=== PATIENT | female | born 1990 | race American Indian/Alaskan Native ===

== ENCOUNTER 2020-10-08 19:09 | Inpatient (IN) | payer MEDICAID ==
[2020-10-08] MEDS ORDERED: Sodium Chloride 0.9% 10 ML Syringe FLUSH PRN (19:33)
[2020-10-08] MEDS ORDERED: Metoclopramide 10 MG/2 ML SDV IVPUSH ONE (19:33)
[2020-10-08] MEDS ORDERED: ceFAZolin 2 GM in Premix Bag 1 BAG IV ONE (19:33)
[2020-10-08] MEDS ORDERED: Citric Acid/Sodium Citrate Solution 30 ML Cup PO ONE (19:33)
[2020-10-08] MEDS ORDERED: Oxytocin 10 Units/1 ML SDV ONE (19:42)
[2020-10-08] MEDS ORDERED: Lactated Ringers 2,000 ML ONE (19:42)
[2020-10-08] MEDS ORDERED: Lidocaine 1% 4 ML ONE (19:42)
[2020-10-08] MEDS ORDERED: ceFAZolin 1 GM Vial ONE (19:42)
[2020-10-08] MEDS ORDERED: Ketorolac 30 MG/ML SDV ONE (19:42)
[2020-10-08] MEDS ORDERED: Propofol 200 MG/20 ML SDV ONE (19:42)
[2020-10-08] MEDS ORDERED: Succinylcholine/Sod PF 100 MG/5 ML SYRINGE IV ONE (19:42)
[2020-10-08] MEDS ORDERED: Ondansetron 4 MG/2 ML SDV ONE (19:42)
[2020-10-08] MEDS ORDERED: Lactated Ringers 1,000 ML IV SCH (19:45)
[2020-10-08] MEDS ORDERED: fentaNYL 250 MCG/5 ML SDV ONE (19:47)
[2020-10-08] MEDS ORDERED: Bupivacaine 0.5% 30 ML SDV ONE (19:49)
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
[2020-10-08] MEDS ORDERED: Dexamethasone 4 MG/ML SDV ONE ×2 (20:31→20:35)
[2020-10-08] MEDS ORDERED: HYDROmorphone 0.5 MG/0.5 ML Syringe ONE (20:40)
[2020-10-08] MEDS ORDERED: fentaNYL 100 MCG/2 ML SDV ONE (20:55)
[2020-10-08] MEDS ORDERED: fentaNYL 100 MCG/2 ML SDV IVPUSH PRN (21:10)
[2020-10-08] MEDS ORDERED: HYDROmorphone 0.5 MG/0.5 ML Syringe IVPUSH PRN (21:10)
[2020-10-08] MEDS ORDERED: Ondansetron 4 MG/2 ML SDV IVPUSH PRN (21:10)
--- NOTE | 2020-10-08 21:10 | PCM.POSTAN ---
POST ANESTHESIA ASSESSMENT - MENTAL STATUS Mental Status: Alert, Oriented - VITAL SIGNS Vital Signs: Last Vital Signs Temp 98.9 F 10/08/20 19:38 Pulse 65 10/08/20 19:38 Resp 18 10/08/20 19:38 BP 131/74 10/08/20 19:38 Pulse Ox 99 10/08/20 19:38 2104 115/71 80 17 97.7 98% - RESPIRATORY Respiratory Status: Respiratory Rate WNL, Airway Patent, O2 Saturation Stable, Supplemental Oxygen - CARDIOVASCULAR CV Status: Pulse Rate WNL, Blood Pressure Stable - GASTROINTESTINAL GI Status: No Symptoms - PAIN Pain Score: 5 - POST OP HYDRATION Hydration Status: Adequate & Stable
--- NOTE | 2020-10-08 21:14 | PCM.OPNOTE ---
- General Post-Op/Procedure Note Date of Surgery/Procedure: 10/08/20 Operative Procedure(s): repeat Findings: viable male, 7/9 apgars, 3380g at 2034. Scar of omentum to bladder. Pre Op Diagnosis: labor, prior , desires repeaet Post-Op Diagnosis: Same Anesthesia Technique: General ET Tube Primary Surgeon: Brittney Crow Anesthesia Provider: Geovanni Carbone Sales And Service Agent: Lucy Briggs Fluid Replacement, Intraop: 1,800 Output, Urine Amount: 350 EBL in mLs: 1,000 Complications: None Condition: Good Free Text/Narrative:: T The patient was prepped and draped in the usual sterile fashion in the dorsal supine position with a leftward tilt. GETA was initiated. A Pfannenstiel skin incision was made with the scalpel and carried through to the underlying layer of fascia. The fascia was incised in the midline and extended laterally using Lassiter scissors. Karen clamps were used to elevate the superior aspect of the fascial incision, which was elevated, and the underlying rectus muscles were dissected off bluntly and using Lassiter scissors. Attention was then turned to the inferior aspect of the fascial incision, which in similar fashion was grasped with Karen clamps, elevated, and the underlying rectus muscles were dissected off bluntly and using the lassiter. The rectus muscles were dissected in the midline. The peritoneum was entered bluntly; this incision was extended superiorly and inferiorly with good visualization of the bladder. The bladder blade was inserted. The vesicouterine peritoneum was identified and entered sharply using Metzenbaum scissors. This incision was extended laterally and the bladder flap was created digitally. The bladder blade was reinserted. The lower uterine segment was incised in a transverse fashion using the scalpel and with digital traction. Clear fluid was noted. The infant was subsequently delivered by flexing the head to the incision. Body and shoulders followed without difficulty. The cord was clamped and cut. The infant was subsequently handed to the awaiting medical assistant secretary whose presence had been requested.. The placenta was delivered spontaneously intact with a three-vessel cord noted. The uterus was exteriorized and cleared of all clots and debris. The uterine incision was repaired in 1 layer using 0 monocryl. Hemostasis was visualized. Hemostasis was visualized bilaterally. The uterus was returned to the abdomen. Scar band of omentum to bladder taken down through omentum with bovie cautery. The uterine incision was reexamined and it was noted to be hemostatic. The pelvis was copiously irrigated. The fascia was closed with 0 vicryl suture, and the skin was closed with 3-0 monocryl. Sponge, lap, and instrument counts were correct x2. The patient was stable at the completion of the procedure and was subsequently transferred to the recovery room in stable condition.
[2020-10-08] MEDS ORDERED: ePHEDrine 50 MG/ML SDV IVPUSH PRN (23:40)
[2020-10-08] MEDS ORDERED: diphenhydrAMINE 50 MG/ML SDV IVPUSH PRN (23:40)
[2020-10-08] MEDS ORDERED: Acetaminophen 325 MG Tab PO PRN (23:40)
[2020-10-08] MEDS ORDERED: Dextrose 5%-Lactated Ringers 1,000 ML IV SCH (23:40)
[2020-10-08] MEDS ORDERED: Morphine 2 MG/ML SYRINGE IVPUSH PRN (23:40)
[2020-10-08] MEDS ORDERED: Naloxone 0.4 MG/ML SDV IVPUSH PRN (23:40)
[2020-10-08] MEDS: Acetaminophen/oxyCODONE 325-5 MG Tab PO PRN (23:54)
[2020-10-09] MEDS: Ibuprofen 600 MG Tab PO PRN ×3 (03:41→21:00)
[2020-10-09] MEDS: Acetaminophen/oxyCODONE 325-5 MG Tab PO PRN ×4 (05:00→22:34)
--- NOTE | 2020-10-09 10:11 | PCM.SN.2 ---
- Free Text/Narrative Note: note: Patient is doing well in the period. Minimal lochia, voiding well, ambulated without problems. Nursing without concerns. Patient is afebrile, vital signs are stable Abdomen is flat, soft, uterus is below the umbilicus and is firm and nontender. Incision is dry, intact. Dressing is removed. Steri-Strips are in place. Legs are nontender. Assessment: Postoperative/ day #1 recovery going well. Plan: Routine care. Patient be discharged home within the next 48 hours.
--- NOTE | 2020-10-09 15:15 | PCM48HPAN ---
Post Anesthesia Note - EVALUATION WITHIN 48HRS OF ANESTHETIC Vital Signs in Normal Range: Yes Patient Participated in Evaluation: Yes Respiratory Function Stable: Yes Airway Patent: Yes Cardiovascular Function Stable: Yes Hydration Status Stable: Yes Pain Control Satisfactory: Yes Nausea and Vomiting Control Satisfactory: Yes Mental Status Recovered: Yes Vital Signs: Last Vital Signs Temp 97.5 F 10/09/20 12:04 Pulse 75 10/09/20 12:04 Resp 17 10/09/20 12:04 BP 110/86 10/09/20 12:04 Pulse Ox 100 10/09/20 12:04 - COMMENTS/OBSERVATIONS Free Text/Narrative:: Visited with patient regarding experience. Patient stated that it went well. Patient did not verbalize any questions or concerns at this time. Randa Boykin DEVOPS CONSULTANT
[2020-10-10] MEDS: Acetaminophen/Codeine 300-30 MG Tab PO PRN ×3 (08:56→20:33)
[2020-10-10] MEDS: hydrOXYzine HCl 25 MG Tab PO SCH ×2 (08:56→20:32)
[2020-10-10] MEDS: Docusate Sodium 100 MG Cap PO SCH ×2 (08:56→20:33)
--- NOTE | 2020-10-10 09:14 | PCM.SN.2 ---
- Free Text/Narrative Note: Post Operative Progress Note POD #2 Subjective: Doing well overall. Ambulating without difficulty. Lochia minimal. Voiding without difficulty. Passing flatus but has not had a bowel movement. Denies significant pressure like she has to have a bowel movement. Tolerating regular diet without nausea or vomiting. Pain overall controlled with oral medications. Bottlefeeding with minimal difficulty. Objective: Vitals: Vital Signs - 24 hr 10/09/20 10/09/20 10/09/20 12:04 16:20 20:57 Temperature 36.4 C 36.8 C 36.9 C Pulse, 75 85 76 Peripheral Respiratory 17 18 16 Rate Blood Pressure 110/86 114/60 123/62 O2 Sat by Pulse 100 99 98 Oximetry 10/10/20 04:26 Temperature 37.0 C Pulse, 70 Peripheral Respiratory 16 Rate Blood Pressure 111/62 O2 Sat by Pulse 98 Oximetry Physical Exam General: Alert and oriented, no acute distress Lungs: Clear to auscultation bilaterally Heart: Regular rate and rhythm Abdomen: Soft, minimal appropriate tenderness, non-distended, fundus midline, nontender and at the umbilicus Incision: Clean, dry and intact, no erythema, bleeding or drainage with Steri- Strips in place Extremities: Trace edema in bilateral lower extremities to mid shins, no calf tenderness bilaterally Laboratory Results - last 24 hr 10/08/20 Range/Units 20:00 RPR Non-reactive (NONREACTIVE) ASSESSMENT: 29-year-old female -0-0-2 s/p repeat section POD #2 for history of section, complicated by current incarceration, hepatitis C, tobacco use and history of meth use PLAN: Doing well Bottlefeeding with minimal difficulty. Assist as needed Incision healing well. Continue to keep clean and dry. Lochia minimal. Continue to monitor for appropriate lochia. Continue routine post-operative care Restart hydroxyzine 25 mg twice daily for anxiety Transition to Tylenol #3 from Percocet due to only able to receive Tylenol #3 in detention. We will make sure that her pain is able to be very well controlled with Tylenol 3 and if not would recommend for her to be given Percocet for pain control Anticipate discharge home this afternoon if pain continues to be well controlled Kenton Mullen MD 9:13 AM 10/10/2020
[2020-10-11] MEDS: Acetaminophen/Codeine 300-30 MG Tab PO PRN ×3 (02:07→16:54)
[2020-10-11] MEDS: Ibuprofen 600 MG Tab PO PRN (08:02)
[2020-10-11] MEDS: hydrOXYzine HCl 25 MG Tab PO SCH (08:03)
[2020-10-11] MEDS: Docusate Sodium 100 MG Cap PO SCH (08:03)
[2020-10-11 08:36] VITALS: BP 111/65; PULSE 76
--- NOTE | 2020-10-11 09:59 | PCM.DCSUM1 ---
Discharge Summary - Hospital Course Free Text/Narrative:: Tania is a 29-year-old multigravida female admitted on 10/08/2020 for elective repeat section. She was in labor at the time of admission. Please see admission history and physical. Please see operative report for details. She delivered a viable male infant Apgars of 7 and 9 and a weight of 3380 g at 2034 hrs. on 10/18/2020. Postoperatively pain was controlled with ibuprofen and Tylenol No. 3. She is made good bowel, bladder and ambulatory activity. [facility] 10/11/2020. Diagnosis: Stroke: No - Discharge Data Discharge Date: 10/11/20 Discharge Disposition: Home, Self-Care 01 Condition: Good - Referral to Home Health Primary Care Physician: Brittney Crow MD - Patient Summary/Data Operative Procedure(s) Performed: repeat - Patient Instructions Diet: Regular Diet as Tolerated Activity: As Tolerated ([place]yl[place] or tampons until seen back. No lifting greater than 15 pounds or driving a car for the next 7 to 10 days.) Driving: Do Not Drive Showering/Bathing: May Shower Wound/Incision Care: Keep Operative Site/Wound Site Clean and Dry Notify Provider of: Fever, Increased Pain, Swelling and Redness, Drainage, Nausea and/or Vomiting - Discharge Plan Home Medications: Home Meds #103/Iron Fumarate/Fa [ ] 1 each PO DAILY 08/11/20 [History] Acetaminophen/Codeine [Tylenol with Codeine No.3 300MG/30MG] 2 tab PO Q4H PRN tablet 10/11/20 [Rx] Ibuprofen [Motrin] 600 mg PO Q6H PRN tablet 10/11/20 [Rx] Referrals: Brittney Crow MD [Primary Care Provider] - ([facility] - Discharge Summary/Plan Comment DC Time >30 min.: No Discharge Summary/Plan Comment: Discharge instructions: 1. Discharge home 2. Diet, activity and follow-up discussed with patient. 3. Precautions given concern increased pain, bleeding, temperature, signs/symptoms of DVT/PE. 4. Medications per home medication was printed, discussed with and given to the patient. 5. Return to clinic-Dr. Crow at [facility] in 2 weeks. Diagnosis: 1. History of previous with desire for repeat section at term. 2. Term -delivered Condition: Good - Patient Data Vitals - Most Recent: Last Vital Signs Temp 36.7 C 10/11/20 08:05 Pulse 76 10/11/20 08:05 Resp 14 10/11/20 08:05 BP 111/65 10/11/20 08:05 Pulse Ox 97 10/11/20 08:05 Weight - Most Recent: 112.945 kg I&O - Last 24 hours: Intake & Output 10/10/20 10/11/20 10/11/20 22:59 06:59 14:59 Intake Total 240 Balance 240 Med Orders - Current: Current Medications Acetaminophen (Acetaminophen 325 Mg Tab) 650 mg PO Q4H PRN PRN Reason: mild pain or fever Acetaminophen/Codeine Phosphate (Acetaminophen/Codeine 300-30 Mg Tab) 1 tab PO Q4H PRN PRN Reason: Pain (moderate 4-6) Last Admin: 10/11/20 02:07 Dose: 1 tab Documented by: Acetaminophen/Codeine Phosphate (Acetaminophen/Codeine 300-30 Mg Tab) 2 tab PO Q4H PRN PRN Reason: Pain (severe 7-10) Last Admin: 10/10/20 13:18 Dose: 2 tab Documented by: Diphenhydramine HCl (Diphenhydramine 50 Mg/Ml Sdv) 25 mg IVPUSH Q6H PRN PRN Reason: Itching or Nausea Docusate Sodium (Docusate Sodium 100 Mg Cap) 100 mg PO BID [facility] Last Admin: 10/11/20 08:03 Dose: 100 mg Documented by: Ephedrine Sulfate (Ephedrine 50 Mg/Ml Sdv) 5 mg IVPUSH SEECOMMENT PRN PRN Reason: Other Hydroxyzine HCl (Hydroxyzine Hcl 25 Mg Tab) 25 mg PO BID [facility] Last Admin: 10/11/20 08:03 Dose: 25 mg Documented by: Ibuprofen (Ibuprofen 600 Mg Tab) 600 mg PO Q6H PRN PRN Reason: mild pain or fever Last Admin: 10/11/20 08:02 Dose: 600 mg Documented by: Morphine Sulfate (Morphine 2 Mg/Ml Syringe) 2 mg IVPUSH Q1H PRN PRN Reason: Pain (severe 7-10) Naloxone HCl (Naloxone 0.4 Mg/Ml Sdv) 0.1 mg IVPUSH SEECOMMENT PRN PRN Reason: Respiratory Depression Discontinued Medications Bupivacaine HCl (Bupivacaine 0.5% 30 Ml Sdv) Confirm Administered Dose 30 ml .ROUTE .STK-MED ONE Stop: 10/08/20 19:50 Last Admin: 10/08/20 20:56 Dose: 20 ml Documented by: Cefazolin Sodium (Cefazolin 1 Gm Vial) Confirm Administered Dose 2 gm .ROUTE .STK-MED ONE Stop: 10/08/20 19:43 Citric Acid/Sodium Citrate (Citric Acid/Sodium Citrate Solution 30 Ml Cup) 30 ml PO ONETIME ONE Stop: 10/08/20 19:34 Last Admin: 10/08/20 19:56 Dose: 30 ml Documented by: Dexamethasone (Dexamethasone 4 Mg/Ml Sdv) Confirm Administered Dose 4 mg .ROUTE .STK-MED ONE Stop: 10/08/20 20:32 Dexamethasone (Dexamethasone 4 Mg/Ml Sdv) Confirm Administered Dose 4 mg .ROUTE .STK-MED ONE Stop: 10/08/20 20:36 Fentanyl (Fentanyl 250 Mcg/5 Ml Sdv) Confirm Administered Dose 250 mcg .ROUTE .STK-MED ONE Stop: 10/08/20 19:48 Fentanyl (Fentanyl 100 Mcg/2 Ml Sdv) Confirm Administered Dose 100 mcg .ROUTE .STK-MED ONE Stop: 10/08/20 20:56 Fentanyl (Fentanyl 100 Mcg/2 Ml Sdv) 50 mcg IVPUSH Q5M PRN PRN Reason: Pain Last Admin: 10/08/20 21:31 Dose: 50 mcg Documented by: Hydromorphone HCl (Hydromorphone 0.5 Mg/0.5 Ml Syringe) Confirm Administered Dose 0.5 mg .ROUTE .STK-MED ONE Stop: 10/08/20 20:41 Hydromorphone HCl (Hydromorphone 0.5 Mg/0.5 Ml Syringe) 0.5 mg IVPUSH Q10M PRN PRN Reason: Pain (severe 7-10) Last Admin: 10/08/20 21:19 Dose: 0.5 mg Documented by: Cefazolin Sodium/Dextrose 2 gm (/ Premix) 50 mls @ 100 mls/hr IV ONETIME ONE Stop: 10/08/20 20:02 Last Admin: 10/08/20 23:09 Dose: Not Given Documented by: Lactated Ringer's (Ringers, Lactated) 1,000 mls @ 125 mls/hr IV ASDIRECTED [facility] Last Admin: 10/08/20 19:56 Dose: 125 mls/hr Documented by: Lactated Ringer's (Ringers, Lactated) Confirm Administered Dose 2,000 mls @ as directed .ROUTE .STK-MED ONE Stop: 10/08/20 19:43 Lidocaine HCl (Xylocaine-Mpf 1%) Confirm Administered Dose 4 mls @ as directed .ROUTE .STK-MED ONE Stop: 10/08/20 19:43 Dextrose/Lactated Ringer's (Dextrose 5%-Lactated Ringers) 1,000 mls @ 125 mls/hr IV ASDIRECTED [facility] Stop: 10/09/20 07:39 Last Admin: 10/08/20 23:49 Dose: 125 mls/hr Documented by: Ketorolac Tromethamine (Ketorolac 30 Mg/Ml Sdv) Confirm Administered Dose 30 mg .ROUTE .STK-MED ONE Stop: 10/08/20 19:43 Metoclopramide HCl (Metoclopramide 10 Mg/2 Ml Sdv) 10 mg IVPUSH ONETIME ONE Stop: 10/08/20 19:34 Last Admin: 10/08/20 19:56 Dose: 10 mg Documented by: Ondansetron HCl (Ondansetron 4 Mg/2 Ml Sdv) Confirm Administered Dose 4 mg .ROUTE .STK-MED ONE Stop: 10/08/20 19:43 Ondansetron HCl (Ondansetron 4 Mg/2 Ml Sdv) 4 mg IVPUSH ONETIME PRN PRN Reason: Nausea/Vomiting Oxycodone/Acetaminophen (Acetaminophen/Oxycodone 325-5 Mg Tab) 1 tab PO Q4H PRN PRN Reason: Pain (moderate 4-6) Last Admin: 10/09/20 22:34 Dose: 1 tab Documented by: Oxycodone/Acetaminophen (Acetaminophen/Oxycodone 325-5 Mg Tab) 2 tab PO Q4H PRN PRN Reason: Pain (severe 7-10) Last Admin: 10/09/20 11:36 Dose: 2 tab Documented by: Oxytocin (Oxytocin 10 Units/1 Ml Sdv) Confirm Administered Dose 10 unit .ROUTE .STK-MED ONE Stop: 10/08/20 19:43 Propofol (Propofol 200 Mg/20 Ml Sdv) Confirm Administered Dose 200 mg .ROUTE .STK-MED ONE Stop: 10/08/20 19:43 Sodium Chloride (Sodium Chloride 0.9% 10 Ml Syringe) 10 ml FLUSH ASDIRECTED PRN PRN Reason: Keep Vein Open
[2020-10-11] MEDS ORDERED: diphenhydrAMINE 25 MG Cap PO ONE (17:00)
== END 2020-10-11 17:10 | disposition home or self-care (01) | DRG 788 ==
LOC: JD.OBCHECK 19:09 → JD.OB 19:10 → JD.OBCHECK 19:32 → JD.OB 19:33
PROVIDERS: ADMIT Obstetrics & Gynecology; ATTEND Obstetrics & Gynecology
PROC: 10D00Z1 Extraction of Products of Conception, Low, Open Approach (ICD-10-PCS; principal; 2020-10-11)
DX: O34.211 Maternal care for low transverse scar from previous cesarean delivery (principal); Z37.0 Single live birth; Z3A.38 38 weeks gestation of pregnancy; Z87.891 Personal history of nicotine dependence; O99.214 Obesity complicating childbirth; Z20.822 Contact with and (suspected) exposure to COVID-19
CPT/HCPCS: 01961; 36415; 59025; 85025; 86592; 86850; 86900; 86901; A9270-GY; J0330; J0690; J1100; J1170; J1885; J2405; J2590; J2704; J2765; J3010; J3490; J7120; J7121; U0002